=== PATIENT | female | born 2000 | race Caucasian/White ===

== ENCOUNTER → 2022-07-18 | Outpatient (CLI) | payer OTHER | LOC: M RAD 13:13 | PROVIDERS: ATTEND Obstetrics & Gynecology | DX: Z36.89 Encounter for other specified antenatal screening (principal); Z3A.20 20 weeks gestation of pregnancy ==

== ENCOUNTER 2022-11-09 01:11 | Outpatient (CLI) | payer OTHER ==
[~2022-11-09] VITALS: Ht 167.6 cm; Wt 62.8 kg
[2022-11-09 01:28] VITALS: BP 124/73
[2022-11-09] MEDS ORDERED: ACET500P3 PO (01:31)
[2022-11-09] MEDS ORDERED: PRENTAB9 PO (01:32)
[2022-11-09 02:36] LABS: APPEARANCE, URINE CLEAR (CLEAR); BACTERIA, URINE AUTO NEGATIVE (NEGATIVE); BILIRUBIN, URINE AUTO NEGATIVE (NEGATIVE); BLOOD, URINE BLOOD NEGATIVE (NEGATIVE); COLOR, URINE STRAW (YELLOW); GLUCOSE, URINE (UA) AUTO NEGATIVE (NEGATIVE); KETONE, URINE AUTO NEGATIVE (NEGATIVE); LEUKOCYTE ESTERASE, URINE AUTO NEGATIVE (NEGATIVE); MUCUS, URINE SMALL (NEGATIVE); NITRITE, URINE AUTO NEGATIVE (NEGATIVE); PROTEIN, URINE AUTO NEGATIVE (NEGATIVE); RBC, URINE AUTO 0 /HPF (0-3); SPECIFIC GRAVITY URINE AUTO 1.009 (1.002-1.035); SQUAMOUS EPITHELIAL CELL UR AU 0 /HPF (0-6); UROBILINOGEN, URINE AUTO 0.2 mg/dL (0.0-2.0); WBC, URINE AUTO 1 /HPF (0-3)
[2022-11-09] MEDS ORDERED: HOME MED LIST COMPLETE! XX SCH (03:25)
== END 2022-11-09 03:10 | disposition home or self-care (01) ==
LOC: M LDO 01:11
PROVIDERS: ATTEND Obstetrics & Gynecology
DX: O99.280 Endocrine, nutritional and metabolic diseases complicating pregnancy, unspecified trimester (principal); E86.0 Dehydration; Z3A.36 36 weeks gestation of pregnancy

== ENCOUNTER 2022-11-27 09:53 | Outpatient (CLI) | payer OTHER ==
[~2022-11-27] VITALS: Ht 167.6 cm; Wt 65.8 kg
[~2022-11-27 09:53] MED LIST: ACET500P3 PO; PRENTAB9 PO
[2022-11-27] MEDS ORDERED: IRON27TA2 PO (10:08)
[2022-11-27] MEDS ORDERED: HOME MED LIST COMPLETE! XX SCH (10:10)
[2022-11-27 10:14] VITALS: BP 123/76
== END 2022-11-27 12:40 | disposition home or self-care (01) ==
LOC: M LDO 09:53
PROVIDERS: ATTEND Advanced Practice Midwife
DX: O26.893 Other specified pregnancy related conditions, third trimester (principal); M54.50 Low back pain, unspecified; Z3A.39 39 weeks gestation of pregnancy; Z87.51 Personal history of pre-term labor
CPT/HCPCS: 59025; G0463

== ENCOUNTER 2022-12-03 19:40 | Inpatient (IN) | payer OTHER ==
[~2022-12-03] VITALS: Ht 167.6 cm; Wt 65.5 kg
[~2022-12-03 19:40] MED LIST changes: +IRON27TA2 PO
[2022-12-03 20:10] VITALS: BP 116/72
[2022-12-03] MEDS ORDERED: HOME MED LIST COMPLETE! XX SCH (20:10)
[2022-12-03] MEDS ORDERED: PENICILLIN G POTASSIUM 5 MU IV 5 MU in D5W MINI-BAG PLUS 100 ML IV STA (20:23)
[2022-12-03] MEDS ORDERED: LACTATED RINGER'S 1000 ML IV STA (20:23)
[2022-12-03] MEDS ORDERED: LIDOCAINE 1% MDV 20ML VIAL INFIL PRN (20:25)
[2022-12-03] MEDS ORDERED: OXYTOCIN INJ 10UNITS/ML 1ML VIAL IM PRN (20:25)
[2022-12-03] MEDS ORDERED: OXYTOCIN DRIP 30 UNITS in IV 1 EA IV PRN ×6 (20:25)
[2022-12-03] MEDS ORDERED: OXYTOCIN INJ 10UNITS/ML 1ML VIAL IV PRN (20:25)
[2022-12-03] MEDS ORDERED: CARBOPROST TROMETHAMINE 250 MCG/ML AMP IM PRN (20:25)
[2022-12-03] MEDS ORDERED: LR 1,000 ML IV SCH (20:25)
[2022-12-03] MEDS ORDERED: TRANEXAMIC ACID INJection 1,000 MG in NS 100 ML IV PRN (20:25)
[2022-12-03] MEDS ORDERED: METHYLERGONOVINE MALEATE 0.2MG/ML 1ML VIAL IM PRN (20:25)
[2022-12-03 20:51] LABS: HEMATOCRIT 30.8 % (36.0-47.0); HEMOGLOBIN 10.2 g/dl (12.0-15.5); MEAN CORPUSCULAR HEMOGLOBIN 30.2 pg (27.0-33.0); MEAN CORPUSCULAR HGB CONC 33.1 g/dl (32.0-36.5); MEAN CORPUSCULAR VOLUME 91.1 fl (80.0-96.0); PLATELET COUNT, AUTOMATED 201 10^3/uL (150-450); RED BLOOD COUNT 3.38 10^6/uL (4.00-5.40); WHITE BLOOD COUNT 13.5 10^3/uL (4.0-10.0)
[2022-12-03] MEDS ORDERED: OXYTOCIN DRIP 30 UNITS in IV 1 EA IV SCH (21:05)
[2022-12-03 21:30] VITALS: BP 130/77
[2022-12-03] MEDS ORDERED: ePHEDrine SULFATE 25 MG/5 ML(5MG/ML) SYRINGE IVP PRN (22:40)
[2022-12-03] MEDS ORDERED: FENTANYL/ROPIVACAINE/NACL BAG 100 ML EPIDURAL SCH (22:40)
[2022-12-03] MEDS ORDERED: NALOXONE INJ 0.4MG/1ML VIAL IV PRN (22:40)
[2022-12-03] MEDS ORDERED: EPIDURAL/PCA KEYS XX PRN (22:40)
[2022-12-03] MEDS ORDERED: ONDANSETRON 4MG 2ML VIAL IV PRN (22:40)
[2022-12-03] MEDS ORDERED: diphenhydrAMINE 50MG/ML VIAL IV PRN (22:40)
[2022-12-03] MEDS ORDERED: LR 500 ML IV PRN (22:40)
[2022-12-03 22:49] VITALS: BP 136/85
[2022-12-03 22:52] VITALS: BP 119/86
[2022-12-03 22:55] VITALS: BP 127/88
[2022-12-03 22:58] VITALS: BP 118/79
[2022-12-04] VITALS (22 sets, daily range): BP systolic 91–119; BP diastolic 54–79; O2SAT 96–97
[2022-12-04] MEDS ORDERED: PEN G POT 3,000,000 UNIT/50 ML 3,000,000 UNIT in IV 1 EA IV SCH (01:00)
[2022-12-04] MEDS ORDERED: RHOGAM 300MCG (1500IU) INJ IM SCH (05:05)
[2022-12-04] MEDS ORDERED: DIBUCAINE 1% OINTMENT 30GM TOP PRN (05:05)
[2022-12-04] MEDS ORDERED: DOCUSATE SODIUM 100MG CAPSULE PO PRN (05:05)
[2022-12-04] MEDS: PRENATAL VITAMINS CHEWABLE TABLET PO SCH (09:00)
[2022-12-04] MEDS: IBUPROFEN 800 MG TAB PO PRN (15:28)
[2022-12-04] MEDS: ACETAMINOPHEN 500 MG TAB PO PRN ×2 (15:44→22:03)
[2022-12-05] MEDS: IBUPROFEN 800 MG TAB PO PRN (03:13)
[2022-12-05 06:00] VITALS: BP 103/65; O2SAT 97
[2022-12-05] MEDS: PRENATAL VITAMINS CHEWABLE TABLET PO SCH (07:54)
[2022-12-05] MEDS: ACETAMINOPHEN 500 MG TAB PO PRN (07:55)
[2022-12-05] MEDS ORDERED: IBUP80TA PO (15:47)
[2022-12-05] MEDS ORDERED: ACET-683 PO (15:47)
[2022-12-05] MEDS ORDERED: COLA100C5 PO (15:47)
[2022-12-06] MEDS ORDERED: MEASLES,MUMPS,RUBELLA VACCINE INJ (MMR-II) SC.IMMUN ONE (09:00)
== END 2022-12-05 18:20 | disposition home or self-care (01) | DRG 807 ==
LOC: M LDO 19:40 → M LDI 20:46 → M OBS 12-04 08:35
PROVIDERS: ADMIT Obstetrics & Gynecology; ATTEND Obstetrics & Gynecology
PROC: 10E0XZZ Delivery of Products of Conception, External Approach (ICD-10-PCS; principal; 2022-12-04)
DX: O80 Encounter for full-term uncomplicated delivery (principal); Z37.0 Single live birth; Z3A.40 40 weeks gestation of pregnancy

== ENCOUNTER → 2023-07-16 | Outpatient (REF) | payer OTHER ==
[~2023-07-16] MED LIST changes: +ACET-683 PO; +COLA100C5 PO; +IBUP80TA PO
[2023-07-16 17:29] LABS: IRON (FE) 71 UG/DL (50-170)
[2023-07-16 17:30] LABS: BASO % 0.1 % (0.0-1.0); EOS % 0.4 % (0.0-3.0); HEMATOCRIT 42.5 % (36.0-47.0); HEMOGLOBIN 13.8 g/dl (12.0-15.5); LYMPH % 24.3 % (24.0-44.0); MEAN CORPUSCULAR HEMOGLOBIN 29.6 pg (27.0-33.0); MEAN CORPUSCULAR HGB CONC 32.5 g/dl (32.0-36.5); MEAN CORPUSCULAR VOLUME 91.2 fl (80.0-96.0); MONO # 0.5 10^3/uL (0.0-0.8); MONO % 6.7 % (2.0-8.0); NEUTROPHILS # 5.5 10^3/uL (1.5-8.5); NEUTROPHILS % 68.4 % (36.0-66.0); PERCENT SATURATION 19.5 % (13.2-45.0); PLATELET COUNT, AUTOMATED 302 10^3/uL (150-450); RED BLOOD COUNT 4.66 10^6/uL (4.00-5.40); TOTAL IRON BINDING CAPACITY 365 UG/DL (250-425)
[2023-07-16 17:34] LABS: THYROID STIMULATING HORMONE 2.851 uIU/ML (0.55-4.78)
[2023-07-16 17:35] LABS: TOTAL 25(OH) VITAMIN D 29.1 NG/ML (20.0-100.0)
[2023-07-16 18:25] LABS: ALBUMIN 4.5 G/DL (3.2-5.2); ALKALINE PHOSPHATASE 49 U/L (46-116); ALT/SGPT 17 U/L (7.0-40); AST/SGOT 13 U/L (<34); BILIRUBIN,TOTAL 0.6 MG/DL (0.3-1.2); BLOOD UREA NITROGEN 9 MG/DL (9-23); CALCIUM LEVEL 9.6 MG/DL (8.5-10.1); CARBON DIOXIDE LEVEL 28 MMOL/L (20-31); CHLORIDE LEVEL 105 MMOL/L (98-107); CHOLESTEROL LEVEL 147 MG/DL (<200); CHOLESTEROL RISK RATIO 3.78 (<5); CREATININE FOR GFR 0.77 MG/DL (0.55-1.30); GLOMERULAR FILTRATION RATE > 60.0 (>60); GLUCOSE, FASTING 105 MG/DL (60-100); HDL CHOLESTEROL 38.8 MG/DL (>40); LDL CHOLESTEROL 87.2 MG/DL (<100); MAGNESIUM LEVEL 1.9 MG/DL (1.8-2.4); NON-HDL-C 108.2 MG/DL; POTASSIUM SERUM 4.1 MMOL/L (3.5-5.1); SODIUM LEVEL 139 MMOL/L (136-145); TRIGLYCERIDES LEVEL 105 MG/DL (<150)
== END ==
LOC: M LAB REF 16:47
PROVIDERS: ATTEND Nurse Practitioner Family
DX: E55.9 Vitamin D deficiency, unspecified (principal); E51.9 Thiamine deficiency, unspecified; Z11.9 Encounter for screening for infectious and parasitic diseases, unspecified; Z86.2 Personal history of diseases of the blood and blood-forming organs and certain disorders involving the immune mechanism; R53.83 Other fatigue; E66.3 Overweight

== ENCOUNTER → 2023-08-13 | Outpatient (CLI) | payer OTHER | LOC: M WHC 14:09 | PROVIDERS: ATTEND Nurse Practitioner Family | DX: N83.209 Unspecified ovarian cyst, unspecified side (principal) ==

== ENCOUNTER → 2023-12-22 | Outpatient (REF) | payer OTHER | LOC: M SFHCWAGY 07:58 | PROVIDERS: ATTEND Nurse Practitioner Family | DX: Z12.4 Encounter for screening for malignant neoplasm of cervix (principal) ==

== ENCOUNTER → 2024-07-20 | Outpatient (REF) | payer OTHER ==
[2024-07-20 16:42] LABS: Trichomonas vaginalis (AMP) NOT DETECTED (NEGATIVE)
[2024-07-20 17:06] LABS: GC DNA AMPLIFICATION NEGATIVE (NEGATIVE)
== END ==
LOC: M SFHCWAGY 14:30
PROVIDERS: ATTEND Nurse Practitioner Family
DX: N94.10 Unspecified dyspareunia (principal); N73.9 Female pelvic inflammatory disease, unspecified; R10.2 Pelvic and perineal pain

== ENCOUNTER 2025-02-16 20:35 | Emergency (ER) | payer OTHER ==
[~2025-02-16] VITALS: Ht 167.6 cm; Wt 58.0 kg
[2025-02-17 00:15] VITALS: BP 117/76; TEMP 98.1; O2SAT 98
== END 2025-02-17 00:16 | disposition home or self-care (01) ==
LOC: M ED 20:35
DX: J06.9 Acute upper respiratory infection, unspecified (principal); B34.8 Other viral infections of unspecified site; G43.909 Migraine, unspecified, not intractable, without status migrainosus; Z79.899 Other long term (current) drug therapy

== ENCOUNTER 2025-04-07 16:05 | Emergency (ER) | payer OTHER ==
[~2025-04-07] VITALS: Ht 167.6 cm; Wt 57.9 kg
[2025-04-07 16:48] LABS: PLATELET COUNT, AUTOMATED 280 10^3/uL (150-450)
[2025-04-07 17:06] LABS: AMPHETAMINES LEVEL URINE NEGATIVE (NEGATIVE); BARBITURATES URINE NEGATIVE (NEGATIVE); BENZODIAZEPINES URINE NEGATIVE (NEGATIVE); CANNABINOIDS URINE NEGATIVE (NEGATIVE); COCAINE METABOLITE URINE NEGATIVE (NEGATIVE); METHADONE URINE NEGATIVE (NEGATIVE); OPIATES URINE NEGATIVE (NEGATIVE); PHENCYCLIDINE URINE NEGATIVE (NEGATIVE)
[2025-04-07 17:08] LABS: ETHYL ALCOHOL (ETHANOL) < 0.003 % (0.000-0.010)
[2025-04-07 17:10] LABS: ALT/SGPT 17 U/L (7.0-40); AST/SGOT 17 U/L (<34); CALCIUM LEVEL 9.1 MG/DL (8.5-10.1); CARBON DIOXIDE LEVEL 28 MMOL/L (20-31); CHLORIDE LEVEL 103 MMOL/L (98-107); CREATININE FOR GFR 0.80 MG/DL (0.55-1.30); GLOMERULAR FILTRATION RATE > 90.0 (>60); POTASSIUM SERUM 3.9 MMOL/L (3.5-5.1); SALICYLATE LEVEL < 3.0 MG/DL (<30); SODIUM LEVEL 141 MMOL/L (136-145)
[2025-04-07] MEDS: IBUPROFEN 600 MG TAB PO ONE (18:29)
[2025-04-07 20:10] VITALS: BP 117/77; TEMP 98.1; O2SAT 99
== END 2025-04-07 20:12 | disposition home or self-care (01) ==
LOC: M ED 16:05
DX: F43.0 Acute stress reaction (principal); F32.A Depression, unspecified; F41.9 Anxiety disorder, unspecified; Z79.899 Other long term (current) drug therapy